=== PATIENT | female | born 1990 | race Caucasian/White ===

== ENCOUNTER 2019-01-19 10:33 | Emergency (ER) | payer OTHER ==
--- NOTE | 2019-01-19 10:37 | EDM.PDOC ---
ED HPI GENERAL MEDICAL PROBLEM - General Chief Complaint: Abdominal Pain Stated Complaint: ABDOMINAL PAIN Time Seen by Provider: 01/19/19 10:36 Source of Information: Reports: Patient, Family, RN, RN Notes Reviewed History Limitations: Reports: No Limitations - History of Present Illness INITIAL COMMENTS - FREE TEXT/NARRATIVE: Patient presents the emergency room at [facility] complaining of left flank pain that radiates to the umbilicus. The patient states that her pain started this morning and has progressively gotten worse. The patient states that she's had this in the past and was diagnosed with a kidney infection. The patient states she feels slightly nauseated but has not vomited. No UTI symptoms. The patient denies any diarrhea. Patient denies any recent infections. The patient states she is having normal bowel movements. The patient states that the pain is sharp and stabbing. The patient has not taken any medications for her symptoms. Otherwise no other concerns. Left Flank Pain Score (Numeric/FACES): 10 - Related Data Allergies Allergy/AdvReac Type Severity Reaction Status Date / Time morphine Allergy Hives Verified 01/19/19 10:56 venom-honey bee Allergy Swelling Verified 01/19/19 10:56 [bee venom (honey bee)] Home Meds: Home Meds . 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 Denies: Diarrhea, Vomiting Skin: Reports: No Symptoms Neurological: Reports: No Symptoms ED EXAM, GI/ABD - Physical Exam Exam: See Below Exam Limited By: No Limitations General Appearance: Alert, No Apparent Distress Respiratory/Chest: No Respiratory Distress, Lungs Clear, Normal Breath Sounds Cardiovascular: Normal Peripheral Pulses, Regular Rate, Rhythm GI/Abdominal Exam: Tender (Umbilical area), Abnormal Bowel Sounds (Hypoactive). No: Rigid, Rebound Back Exam: CVA Tenderness (L). No: Paraspinal Tenderness Neurological: Alert, Oriented Skin Exam: Warm, Dry, Intact, Normal Color Course - Vital Signs Last Recorded V/S: Last Vital Signs Temp 36.6 C 01/19/19 10:35 Pulse 79 01/19/19 10:35 Resp 16 01/19/19 10:35 BP 94/60 01/19/19 10:35 Pulse Ox 95 01/19/19 10:35 - Orders/Labs/Meds Orders: Active Orders 24 hr Category Date Time Status CULTURE URINE [RM] Stat Lab 01/19/19 11:11 Received Sodium Chloride 0.9% [Saline Flush] Med 01/19/19 10:39 Active 10 ml FLUSH ASDIRECTED PRN Peripheral IV Insertion Adult [OM.PC] Routine Oth 01/19/19 10:39 Ordered Medication Orders Sodium Chloride (Saline Flush) 10 ml FLUSH ASDIRECTED PRN PRN Reason: Keep Vein Open Labs: Laboratory Tests 01/19/19 01/19/19 01/19/19 Range/Units 10:48 10:48 11:11 WBC 13.1 H (4.0-10.0) x10^3/uL RBC 4.67 (4.00-5.50) x10^6/uL Hgb 13.8 D (12.0-16.0) g/dL Hct 42.5 (33.0-47.0) % MCV 91.0 (78.0-93.0) fL MCH 29.6 (26.0-32.0) pg MCHC 32.5 (32.0-36.0) g/dL RDW Coeff of Shelly 13.5 (10.0-15.0) % Plt Count 201 (130-400) x10^3/uL Neut % (Auto) 75.5 (50.0-80.0) % Lymph % (Auto) 17.4 L (25.0-50.0) % [place] % (Auto) 5.6 (2.0-11.0) % Eos % (Auto) 1.3 (0.0-4.0) % Baso % (Auto) 0.2 (0.2-1.2) % Sodium 140 (136-145) mmol/L Potassium 3.8 (3.5-5.1) mmol/L Chloride 103 (98-107) mmol/L Carbon Dioxide 28 (21-32) mmol/L Anion Gap 12.8 (10-20) mmol/L BUN 13 (7-18) mg/dL Creatinine 0.7 (0.55-1.02) mg/dL Est Cr Clr Drug Dosing TNP Estimated GFR (MDRD) > 60 Glucose 97 (74-106) mg/dL Calcium 9.4 (8.5-10.1) mg/dL Corrected Calcium 9.40 (8.5-10.1) mg/dL Total Bilirubin 0.4 (0.2-1.0) mg/dL AST 14 L (15-37) U/L ALT 16 (14-59) U/L Alkaline Phosphatase 59 (46-116) U/L Total Protein 7.3 (6.4-8.2) g/dL Albumin 4.0 (3.4-5.0) g/dL Globulin 3.3 Albumin/Globulin Ratio 1.21 Amylase 36 (25-115) U/L Lipase 156 (73-393) U/L Urine Color Yellow (YELLOW) Urine Appearance Cloudy H (CLEAR) Urine pH 7.0 (5.0-8.0) Ur Specific [place] 1.020 Urine Protein 30 H (NEGATIVE) mg/dL Urine Glucose (UA) Negative (NEGATIVE) mg/dL Urine Ketones Negative (NEGATIVE) mg/dL Urine Occult Blood Large H (NEGATIVE) Urine Nitrite Negative (NEGATIVE) Urine Bilirubin Negative (NEGATIVE) Urine Urobilinogen 0.2 (0.2) EU/dL Ur Leukocyte Esterase Small H (NEGATIVE) Urine RBC >100 H (NOT SEEN) /HPF Urine WBC 0-5 (NOT SEEN) /HPF Ur Squamous Epith Cells Few H (NEGATIVE) /HPF Urine Bacteria Moderate H (NEGATIVE) /HPF Urine Mucus Not seen (NEGATIVE) /LPF Urine HCG, Qual (NEGATIVE) 01/19/19 Range/Units 11:11 WBC (4.0-10.0) x10^3/uL RBC (4.00-5.50) x10^6/uL Hgb (12.0-16.0) g/dL Hct (33.0-47.0) % MCV (78.0-93.0) fL MCH (26.0-32.0) pg MCHC (32.0-36.0) g/dL RDW Coeff of Shelly (10.0-15.0) % Plt Count (130-400) x10^3/uL Neut % (Auto) (50.0-80.0) % Lymph % (Auto) (25.0-50.0) % [place] % (Auto) (2.0-11.0) % Eos % (Auto) (0.0-4.0) % Baso % (Auto) (0.2-1.2) % Sodium (136-145) mmol/L Potassium (3.5-5.1) mmol/L Chloride (98-107) mmol/L Carbon Dioxide (21-32) mmol/L Anion Gap (10-20) mmol/L BUN (7-18) mg/dL Creatinine (0.55-1.02) mg/dL Est Cr Clr Drug Dosing Estimated GFR (MDRD) Glucose (74-106) mg/dL Calcium (8.5-10.1) mg/dL Corrected Calcium (8.5-10.1) mg/dL Total Bilirubin (0.2-1.0) mg/dL AST (15-37) U/L ALT (14-59) U/L Alkaline Phosphatase (46-116) U/L Total Protein (6.4-8.2) g/dL Albumin (3.4-5.0) g/dL Globulin Albumin/Globulin Ratio Amylase (25-115) U/L Lipase (73-393) U/L Urine Color (YELLOW) Urine Appearance (CLEAR) Urine pH (5.0-8.0) Ur Specific [place] Urine Protein (NEGATIVE) mg/dL Urine Glucose (UA) (NEGATIVE) mg/dL Urine Ketones (NEGATIVE) mg/dL Urine Occult Blood (NEGATIVE) Urine Nitrite (NEGATIVE) Urine Bilirubin (NEGATIVE) Urine Urobilinogen (0.2) EU/dL Ur Leukocyte Esterase (NEGATIVE) Urine RBC (NOT SEEN) /HPF Urine WBC (NOT SEEN) /HPF Ur Squamous Epith Cells (NEGATIVE) /HPF Urine Bacteria (NEGATIVE) /HPF Urine Mucus (NEGATIVE) /LPF Urine HCG, Qual Negative (NEGATIVE) Meds: Medications Generic Name Dose Route Start Last Admin Trade Name Freq PRN Reason Stop Dose Admin Sodium Chloride 10 ml 01/19/19 10:39 Saline Flush FLUSH ASDIRECTED PRN Keep Vein Open Discontinued Medications Generic Name Dose Route Start Last Admin Trade Name Gladys PRN Reason Stop Dose Admin Sodium Chloride 1,000 mls @ 999 mls/hr 01/19/19 10:39 01/19/19 11:00 Normal Saline IV 01/19/19 11:39 999 mls/hr ONETIME ONE Administration Ketorolac Tromethamine 30 mg 01/19/19 10:39 01/19/19 11:10 Toradol IVPUSH 01/19/19 10:40 30 mg ONETIME ONE Administration Ondansetron HCl 4 mg 01/19/19 10:39 01/19/19 11:08 Zofran IVPUSH 01/19/19 10:40 4 mg ONETIME ONE Administration - Radiology Interpretation Free Text/Narrative:: CT Abd/Pelvis: No renal/ureteral calculus or hydronephrosis See scanned report in EMR for details CT Results Date: 01/19/19 CT Results Time: 12:48 Departure - Departure Time of Disposition: 13:01 Disposition: Home, Self-Care 01 Condition: Good Clinical Impression: Left flank pain Hematuria Qualifiers: Hematuria type: unspecified type Qualified Code(s): R31.9 - Hematuria, unspecified - Discharge Information *PRESCRIPTION DRUG MONITORING PROGRAM REVIEWED*: Not Applicable *COPY OF PRESCRIPTION DRUG MONITORING REPORT IN PATIENT [facility]: Not Applicable Instructions: Hematuria, Adult, Flank Pain, Adult Referrals: Crystal Tavarez DO [Primary Care Provider] - 01/20/19 11:40 am (FOLLOW UP TOMORROW JANUARY 20, 2019 AT 11:40AM WITH DR. TAVAREZ) Forms: ED Department Discharge Additional Instructions: 1. Stay well hydrated and rest 2. See Dr. Tavarez in clinic tomorrow at 11:40 3. Call with any questions or concerns - Problem List Review Problem List Initiated/Reviewed/Updated: Yes - My Orders Last 24 Hours: My Active Orders 01/19/19 10:39 Sodium Chloride 0.9% [Saline Flush] 10 ml FLUSH ASDIRECTED PRN Peripheral IV Insertion Adult [OM.PC] Routine 01/19/19 11:11 CULTURE URINE [RM] Stat - Assessment/Plan Last 24 Hours: My Active Orders 01/19/19 10:39 Sodium Chloride 0.9% [Saline Flush] 10 ml FLUSH ASDIRECTED PRN Peripheral IV Insertion Adult [OM.PC] Routine 01/19/19 11:11 CULTURE URINE [RM] Stat Assessment:: Left flank pain Hematuria Plan: CT and labs discussed with patient. No acute emergency or etiology found for her presenting symptoms. Will discharge home and have to patient see her PCP tomorrow in clinic for additional evaluation and possible treatment.
[2019-01-19] MEDS ORDERED: Sodium Chloride 0.9% 10 ML Syringe FLUSH PRN (10:39)
[2019-01-19] MEDS: Sodium Chloride 0.9% 1,000 ML IV ONE (11:00)
[2019-01-19] MEDS: Ondansetron 4 MG/2 ML SDV IVPUSH ONE (11:08)
[2019-01-19] MEDS: Ketorolac 30 MG/ML SDV IVPUSH ONE (11:10)
[2019-01-19 11:13] LABS: CHLORIDE,CL 103 mmol/L (98-107); SODIUM,NA 140 mmol/L (136-145)
[2019-01-19 11:31] LABS: ANION GAP 12.8 mmol/L (10-20)
--- NOTE | 2019-01-19 12:51 | CT ---
[id number] CT/CT Renal Stone Protocol EXAM: RENAL STONE PROTOCOL ABDOMEN CT INDICATION: Abdominal pain, hematuria and stone protocol. COMPARISON: None. DISCUSSION: Mildly elevated colonic stool volume. Appendectomy. Small fat-containing umbilical hernia. Small free fluid in the pelvis is likely physiologic. Left greater than right small ovarian follicles. Retroflexed uterus. The kidneys and collecting systems are normal in appearance without hydronephrosis or urinary calculus identified to explain hematuria. Unenhanced images of the liver, gallbladder, spleen, pancreas, adrenal glands, and small bowel are normal in appearance. No adenopathy or free air. The osseous structures are unremarkable. IMPRESSION: 1. No renal/ureteral calculus or hydronephrosis. Santos Baig MD 01/19/19 [id number] Thank you for allowing us to participate in the care of your patient.
[2019-01-19 14:01] VITALS: BP 101/72
== END 2019-01-19 13:17 | disposition home or self-care (01) ==
LOC: VM.ED 10:33
DX: R10.33 Periumbilical pain (principal); R10.9 Unspecified abdominal pain; R31.9 Hematuria, unspecified; Z88.5 Allergy status to narcotic agent; Z91.030 Bee allergy status
CPT/HCPCS: 36415; 74176; 80053; 81001; 81025; 82150; 83690; 85025; 87086; 96361; 96374; 96375; 99284-25; J1885; J2405; J7030

== ENCOUNTER 2020-07-16 19:30 | Emergency (ER) | payer OTHER ==
[2020-07-16 21:08] LABS: CHLORIDE,CL 103 mmol/L (98-107); SODIUM,NA 137 mmol/L (136-145)
[2020-07-16 21:09] LABS: ANION GAP 12.2 mmol/L (10-20)
[2020-07-16] MEDS ORDERED: Sodium Chloride 0.9% 10 ML Syringe FLUSH PRN (21:17)
[2020-07-16] MEDS ORDERED: HYDROmorphone 0.5 MG/0.5 ML Syringe IV ONE (21:28)
[2020-07-16] MEDS ORDERED: Iopamidol 612 MG/ML 100 ML Bottle IVPUSH ONE (21:55)
[2020-07-16] MEDS ORDERED: Magnesium Hydroxide 400 MG/5 ML Susp 30 ML Cup PO ONE (22:13)
[2020-07-16] MEDS ORDERED: HYDROmorphone 0.5 MG/0.5 ML Syringe IM ONE (23:20)
--- NOTE | 2020-07-16 23:26 | EDM.PDOC ---
ED HPI GENERAL MEDICAL PROBLEM - General Stated Complaint: abdominal pain, back pain Time Seen by Provider: 07/16/20 21:35 Source of Information: Reports: Patient History Limitations: Reports: No Limitations - History of Present Illness INITIAL COMMENTS - FREE TEXT/NARRATIVE: Pt. presents to ER with complaints of excruciating abdominal pain that started this evening. Pt. state that it is primarily in the lower abdomen, L more than R. Denies any bloody stools. No diarrhea. No nausea or vomiting. Pt. states that she had a BM today and states that it was "normal". Denies problems with constipation. Pt. denies any fever or chills. No chest pain or shortness of breath. No cough or chest congestion. Pt. denies any history of intestinal/GI problems in the past. She has had her appendix removed. Pt. states that the discomfort radiates into her low back. She states that the symptoms are very similar to when she had a pyelonephritis in the past. Onset: Today Location: Reports: Abdomen Quality: Reports: Ache, Dull Severity: Severe Associated Symptoms: Denies: Chest Pain, Cough, Diaphoresis, Fever/Chills, Malaise, Nausea/Vomiting, Rash, Seizure, Shortness of Breath, Syncope, Weakness - Related Data Allergies Allergy/AdvReac Type Severity Reaction Status Date / Time morphine Allergy Hives Verified 01/19/19 10:56 venom-honey bee Allergy Swelling Verified 01/19/19 10:56 [bee venom (honey bee)] Home Meds: Home Meds . 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 Denies: Black Stool, Bloody Stool, Constipation, Diarrhea, Distension, Hematochezia, Vomiting : Reports: No Symptoms Musculoskeletal: Reports: No Symptoms Skin: Reports: No Symptoms Neurological: Reports: No Symptoms Psychiatric: Reports: No Symptoms Hematologic/Lymphatic: Reports: No Symptoms Immunologic: Reports: No Symptoms ED EXAM, GENERAL - Physical Exam Exam: See Below Exam Limited By: No Limitations General Appearance: Alert, WD/WN, No Apparent Distress Head: Atraumatic, Normocephalic Neck: Normal Inspection, Supple, Non-Tender, Full Range of Motion Respiratory/Chest: No Respiratory Distress, Lungs Clear, Normal Breath Sounds, No Accessory Muscle Use, Chest Non-Tender Cardiovascular: Normal Peripheral Pulses, Regular Rate, Rhythm, No Edema, No JVD, No Murmur, No Rub Peripheral Pulses: 4+: Radial (L) GI/Abdominal: Guarding, Tender, Other (Severe tenderness on palpation. Pt. does not tolerate much palpation at all.) (Female) Exam: Deferred Rectal (Female) Exam: Deferred Back Exam: Normal Inspection, Full Range of Motion, Other (complains of severe pain to mid/low back.) Extremities: Normal Inspection, Normal Capillary Refill Neurological: Alert, Oriented, CN II-XII Intact, Normal Cognition, Normal Gait, Normal Reflexes, No Motor/Sensory Deficits Psychiatric: Normal Affect, Normal Mood Skin Exam: Warm, Dry, Intact, Normal Color, No Rash Lymphatic: No Adenopathy Course - Orders/Labs/Meds Orders: Active Orders 24 hr Category Date Time Status Abdomen Pelvis w Cont [CT] Stat Exams 07/16/20 21:18 Ordered HYDROmorphone [Dilaudid] Med 07/16/20 23:20 Once 0.5 mg IM ONETIME ONE Sodium Chloride 0.9% [Saline Flush] Med 07/16/20 21:17 Active 10 ml FLUSH ASDIRECTED PRN Peripheral IV Insertion Adult [OM.PC] Routine Oth 07/16/20 21:18 Ordered Medication Orders Hydromorphone HCl (Dilaudid) 0.5 mg IM ONETIME ONE Stop: 07/16/20 23:21 Sodium Chloride (Saline Flush) 10 ml FLUSH ASDIRECTED PRN PRN Reason: Keep Vein Open Labs: Laboratory Tests 07/16/20 07/16/20 07/16/20 Range/Units 20:07 20:07 20:38 WBC 8.8 (4.0-10.0) x10^3/uL RBC 4.48 (4.00-5.50) x10^6/uL Hgb 13.7 (12.0-16.0) g/dL Hct 40.2 (33.0-47.0) % MCV 89.7 (78.0-93.0) fL MCH 30.6 (26.0-32.0) pg MCHC 34.1 (32.0-36.0) g/dL RDW Coeff of Shelly 12.4 (10.0-15.0) % Plt Count 220 (130-400) x10^3/uL Neut % (Auto) 58.7 (50.0-80.0) % Lymph % (Auto) 32.1 (25.0-50.0) % [place] % (Auto) 5.2 (2.0-11.0) % Eos % (Auto) 3.5 (0.0-4.0) % Baso % (Auto) 0.5 (0.2-1.2) % PT (9.5-12.3) SEC INR (2.0-3.5) Sodium (136-145) mmol/L Potassium (3.5-5.1) mmol/L Chloride (98-107) mmol/L Carbon Dioxide (21-32) mmol/L Anion Gap (10-20) mmol/L BUN (7-18) mg/dL Creatinine (0.55-1.02) mg/dL Est Cr Clr Drug Dosing Estimated GFR (MDRD) Glucose (74-106) mg/dL Calcium (8.5-10.1) mg/dL Corrected Calcium (8.5-10.1) mg/dL Total Bilirubin (0.2-1.0) mg/dL AST (15-37) U/L ALT (14-59) U/L Alkaline Phosphatase (46-116) U/L C-Reactive Protein (<=0.9) mg/dL Total Protein (6.4-8.2) g/dL Albumin (3.4-5.0) g/dL Globulin Albumin/Globulin Ratio Amylase (25-115) U/L Lipase (73-393) U/L Urine Color Dark yellow H (YELLOW) Urine Appearance Cloudy H (CLEAR) Urine pH 7.5 (5.0-8.0) Ur Specific [place] 1.025 Urine Protein Negative (NEGATIVE) mg/dL Urine Glucose (UA) Negative (NEGATIVE) mg/dL Urine Ketones Negative (NEGATIVE) mg/dL Urine Occult Blood Negative (NEGATIVE) Urine Nitrite Negative (NEGATIVE) Urine Bilirubin Negative (NEGATIVE) Urine Urobilinogen 0.2 (0.2) EU/dL Ur Leukocyte Esterase Negative (NEGATIVE) Urine HCG, Qual Negative (NEGATIVE) 07/16/20 07/16/20 Range/Units 20:38 20:38 WBC (4.0-10.0) x10^3/uL RBC (4.00-5.50) x10^6/uL Hgb (12.0-16.0) g/dL Hct (33.0-47.0) % MCV (78.0-93.0) fL MCH (26.0-32.0) pg MCHC (32.0-36.0) g/dL RDW Coeff of Shelly (10.0-15.0) % Plt Count (130-400) x10^3/uL Neut % (Auto) (50.0-80.0) % Lymph % (Auto) (25.0-50.0) % [place] % (Auto) (2.0-11.0) % Eos % (Auto) (0.0-4.0) % Baso % (Auto) (0.2-1.2) % PT 10.2 (9.5-12.3) SEC INR 0.9 L (2.0-3.5) Sodium 137 (136-145) mmol/L Potassium 4.2 (3.5-5.1) mmol/L Chloride 103 (98-107) mmol/L Carbon Dioxide 26 (21-32) mmol/L Anion Gap 12.2 (10-20) mmol/L BUN 13 (7-18) mg/dL Creatinine 0.7 (0.55-1.02) mg/dL Est Cr Clr Drug Dosing TNP Estimated GFR (MDRD) > 60 Glucose 87 (74-106) mg/dL Calcium 8.5 (8.5-10.1) mg/dL Corrected Calcium 8.74 (8.5-10.1) mg/dL Total Bilirubin 0.3 (0.2-1.0) mg/dL AST 19 (15-37) U/L ALT 20 (14-59) U/L Alkaline Phosphatase 55 (46-116) U/L C-Reactive Protein < 0.2 (<=0.9) mg/dL Total Protein 6.8 (6.4-8.2) g/dL Albumin 3.7 (3.4-5.0) g/dL Globulin 3.1 Albumin/Globulin Ratio 1.19 Amylase 41 (25-115) U/L Lipase 171 (73-393) U/L Urine Color (YELLOW) Urine Appearance (CLEAR) Urine pH (5.0-8.0) Ur Specific [place] Urine Protein (NEGATIVE) mg/dL Urine Glucose (UA) (NEGATIVE) mg/dL Urine Ketones (NEGATIVE) mg/dL Urine Occult Blood (NEGATIVE) Urine Nitrite (NEGATIVE) Urine Bilirubin (NEGATIVE) Urine Urobilinogen (0.2) EU/dL Ur Leukocyte Esterase (NEGATIVE) Urine HCG, Qual (NEGATIVE) Meds: Medications Generic Name Dose Route Start Last Admin Trade Name Freq PRN Reason Stop Dose Admin Hydromorphone HCl 0.5 mg 07/16/20 23:20 Dilaudid IM 07/16/20 23:21 ONETIME ONE Sodium Chloride 10 ml 07/16/20 21:17 Saline Flush FLUSH ASDIRECTED PRN Keep Vein Open Discontinued Medications Generic Name Dose Route Start Last Admin Trade Name Freq PRN Reason Stop Dose Admin Hydromorphone HCl 0.5 mg 07/16/20 21:28 Dilaudid IV 07/16/20 21:29 ONETIME ONE Iopamidol 100 ml 07/16/20 21:55 07/16/20 21:58 Isovue-300 (61%) IVPUSH 07/16/20 21:56 100 ml ONETIME ONE Administration Magnesium Hydroxide 30 ml 07/16/20 22:13 Milk Of Magnesia PO 07/16/20 22:14 ONETIME ONE - Radiology Interpretation Free Text/Narrative:: CT abdomen and pelvis with IV contrast obtained, negative for acute pathology. Moderate to large stool noted in colon. Departure - Departure Time of Disposition: 22:20 Disposition: Home, Self-Care 01 Clinical Impression: Constipation - Discharge Information Instructions: Constipation, Adult Additional Instructions: Increase intake of fluids. You are dehydrated which can contribute to constipation. Start miralax 17 gm once daily. Start milk of mag tomorrow to help have a bowel movement. - Problem List Review Problem List Initiated/Reviewed/Updated: Yes - My Orders Last 24 Hours: My Active Orders 07/16/20 21:17 Sodium Chloride 0.9% [Saline Flush] 10 ml FLUSH ASDIRECTED PRN 07/16/20 21:18 Abdomen Pelvis w Cont [CT] Stat Peripheral IV Insertion Adult [OM.PC] Routine 07/16/20 23:20 HYDROmorphone [Dilaudid] 0.5 mg IM ONETIME ONE - Assessment/Plan Last 24 Hours: My Active Orders 07/16/20 21:17 Sodium Chloride 0.9% [Saline Flush] 10 ml FLUSH ASDIRECTED PRN 07/16/20 21:18 Abdomen Pelvis w Cont [CT] Stat Peripheral IV Insertion Adult [OM.PC] Routine 07/16/20 23:20 HYDROmorphone [Dilaudid] 0.5 mg IM ONETIME ONE Plan: Increase intake of fluids. You are dehydrated which can contribute to constipation. Start miralax 17 gm once daily. Start milk of mag tomorrow to help have a bowel movement.
[2020-07-17 01:59] VITALS: BP 119/52; PULSE 72
--- NOTE | 2020-07-17 07:58 | CT ---
[id number] CT/CT Abdomen Pelvis W IV EXAM: CT Abdomen Pelvis W IV CLINICAL DATA: ABDOMINAL PAIN COMPARISON: CORRELATION IS MADE WITH THE EXAM OF JANUARY 19, 2019 FINDINGS: The liver and spleen are unremarkable. The kidneys and adrenals show no abnormality. The aorta and pancreas are within normal limits. There is no bowel distention. There is no bowel wall thickening either. There is no free fluid or free air. There is no adenopathy. The pelvis shows no mass, free fluid, abscess, inflammatory change, or adenopathy. IMPRESSION: NO ACUTE PROCESS. Teo Gann MD 07/17/20 [id number] Thank you for allowing us to participate in the care of your patient.
== END 2020-07-16 22:20 | disposition home or self-care (01) ==
LOC: VM.ED 19:30
DX: K59.00 Constipation, unspecified (principal); Z88.5 Allergy status to narcotic agent; Z91.030 Bee allergy status
CPT/HCPCS: 36415; 74177; 80053; 81003; 81025; 82150; 83690; 85025; 85610; 86140; 96372; 99284; A9270; J1170; Q9967

== ENCOUNTER 2021-05-15 18:33 | Emergency (ER) | payer OTHER ==
[2021-05-15] MEDS ORDERED: Sodium Chloride 0.9% 10 ML Syringe FLUSH PRN (18:55)
--- NOTE | 2021-05-15 18:56 | EDM.PDOC ---
ED HPI GENERAL MEDICAL PROBLEM - General Stated Complaint: STOMACH PAIN Time Seen by Provider: 05/15/21 18:50 Source of Information: Reports: Patient History Limitations: Reports: No Limitations - History of Present Illness INITIAL COMMENTS - FREE TEXT/NARRATIVE: Patient comes emergency department today with complaints of some generalized abdominal pain nausea vomiting headache and generalized malaise. This patient felt fine yesterday and today when she woke up she had the above complaints. She has had a tubal ligation as well as a uterine ablation in the past. Otherwise denies any other past medical history other than one time when she had a what appears to sound like a pyelonephritis with some acute kidney injury overlay on top of it in the past. She does have recurrent urinary tract infe ctions that she is asymptomatic with. She has had no dysuria hematuria or urinary frequency. She does complain of bilateral posterior flank pain. She denies any fever but does complain of subjective chills. No vaginal discharge or drainage. She has had an appendectomy in the past. - Related Data Allergies Allergy/AdvReac Type Severity Reaction Status Date / Time morphine Allergy Hives Verified 05/15/21 19:23 venom-honey bee Allergy Swelling Verified 05/15/21 19:23 [bee venom (honey bee)] Home Meds: Home Meds Ondansetron [Ondansetron Odt] 4 mg PO TID PRN #10 tab.rapdis 05/15/21 [Rx] Past Medical History Genitourinary History: Reports: Other (See Below) Other Genitourinary History: One incident of acute renal failure, due to a severe UTI [employer]GER [employer] History: Reports: , Other (See Below) Other MA[employer] History: Currently 20 weeks - Past Surgical History HEENT Surgical History: Reports: Myringotomy w Tube(s), Oral Surgery GI Surgical History: Reports: Appendectomy ED ROS GENERAL - Review of Systems Review Of Systems: Comprehensive ROS is negative, except as noted in HPI. ED EXAM, GI/ABD - Physical Exam Exam: See Below Exam Limited By: No Limitations General Appearance: Alert, WD/WN, No Apparent Distress Eyes: Bilateral: EOMI Ears: Normal External Exam Nose: Normal Inspection Throat/Mouth: No: Normal Inspection (oral mucosa dry) Head: Atraumatic, Normocephalic Neck: Normal Inspection, Supple, Non-Tender Respiratory/Chest: No Respiratory Distress, Lungs Clear, Normal Breath Sounds, No Accessory Muscle Use, Chest Non-Tender Cardiovascular: Normal Peripheral Pulses, Regular Rate, Rhythm GI/Abdominal Exam: Normal Bowel Sounds, Soft, Tender (generalized tenderness without guarding rebound. Negative [place] sign. ) (Female) Exam: Deferred Rectal (Female) Exam: Deferred Back Exam: Normal Inspection, Full Range of Motion Extremities: Normal Inspection, Normal Range of Motion, Normal Capillary Refill Neurological: Alert, Oriented, Normal Cognition, No Motor/Sensory Deficits Psychiatric: Normal Affect, Normal Mood Skin Exam: Warm, Dry, Intact, Normal Color Lymphatic: No Adenopathy Course - Vital Signs Last Recorded V/S: Last Vital Signs Temp 98.1 F 05/15/21 18:55 Pulse 82 05/15/21 18:55 Resp 16 05/15/21 18:55 BP 90/43 L 05/15/21 18:55 Pulse Ox 98 05/15/21 18:55 - Orders/Labs/Meds Orders: Active Orders 24 hr Category Date Time Status Peripheral IV Insertion Adult [OM.PC] Stat Oth 05/15/21 18:55 Ordered Labs: Laboratory Tests 05/15/21 05/15/21 05/15/21 Range/Units 07:05 07:05 19:35 WBC 8.5 (4.0-10.0) x10^3/uL RBC 4.67 (4.00-5.50) x10^6/uL Hgb 14.5 (12.0-16.0) g/dL Hct 41.3 (33.0-47.0) % MCV 88.4 (78.0-93.0) fL MCH 31.0 (26.0-32.0) pg MCHC 35.1 (32.0-36.0) g/dL RDW Coeff of Shelly 12.3 (10.0-15.0) % Plt Count 151 (130-400) x10^3/uL Neut % (Auto) 84.4 H (50.0-80.0) % Lymph % (Auto) 9.4 L (25.0-50.0) % Hughes % (Auto) 5.2 (2.0-11.0) % Eos % (Auto) 0.9 (0.0-4.0) % Baso % (Auto) 0.1 L (0.2-1.2) % Sodium 136 (136-145) mmol/L Potassium 3.8 (3.5-5.1) mmol/L Chloride 104 (98-107) mmol/L Carbon Dioxide 26 (21-32) mmol/L Anion Gap 9.8 (5-15) mmol/L BUN 16 (7-18) mg/dL Creatinine 0.8 (0.55-1.02) mg/dL Est Cr Clr Drug Dosing TNP Estimated GFR (MDRD) > 60 Glucose 82 (70-99) mg/dL Calcium 8.5 (8.5-10.1) mg/dL Corrected Calcium 8.7 (8.5-10.1) mg/dL Total Bilirubin 0.8 (0.2-1.0) mg/dL AST 17 (15-37) U/L ALT 17 (14-59) U/L Alkaline Phosphatase 45 L (46-116) U/L Total Protein 7.3 (6.4-8.2) g/dL Albumin 3.7 (3.4-5.0) g/dL Globulin 3.6 Albumin/Globulin Ratio 1.03 Lipase 160 (73-393) U/L Urine Color (YELLOW) Urine Appearance (CLEAR) Urine pH (5.0-8.0) Ur Specific [place] Urine Protein (NEGATIVE) mg/dL Urine Glucose (UA) (NEGATIVE) mg/dL Urine Ketones (NEGATIVE) mg/dL Urine Occult Blood (NEGATIVE) Urine Nitrite (NEGATIVE) Urine Bilirubin (NEGATIVE) Urine Urobilinogen (0.2) EU/dL Ur Leukocyte Esterase (NEGATIVE) Urine RBC (NOT SEEN) /HPF Urine WBC (NOT SEEN) /HPF Ur Squamous Epith Cells (NOT SEEN) /HPF Urine Bacteria (NOT SEEN) /HPF Urine Mucus (NOT SEEN) /LPF Urine HCG, Qual Negative (NEGATIVE) 05/15/21 Range/Units 19:55 WBC (4.0-10.0) x10^3/uL RBC (4.00-5.50) x10^6/uL Hgb (12.0-16.0) g/dL Hct (33.0-47.0) % MCV (78.0-93.0) fL MCH (26.0-32.0) pg MCHC (32.0-36.0) g/dL RDW Coeff of Shelly (10.0-15.0) % Plt Count (130-400) x10^3/uL Neut % (Auto) (50.0-80.0) % Lymph % (Auto) (25.0-50.0) % Hughes % (Auto) (2.0-11.0) % Eos % (Auto) (0.0-4.0) % Baso % (Auto) (0.2-1.2) % Sodium (136-145) mmol/L Potassium (3.5-5.1) mmol/L Chloride (98-107) mmol/L Carbon Dioxide (21-32) mmol/L Anion Gap (5-15) mmol/L BUN (7-18) mg/dL Creatinine (0.55-1.02) mg/dL Est Cr Clr Drug Dosing Estimated GFR (MDRD) Glucose (70-99) mg/dL Calcium (8.5-10.1) mg/dL Corrected Calcium (8.5-10.1) mg/dL Total Bilirubin (0.2-1.0) mg/dL AST (15-37) U/L ALT (14-59) U/L Alkaline Phosphatase (46-116) U/L Total Protein (6.4-8.2) g/dL Albumin (3.4-5.0) g/dL Globulin Albumin/Globulin Ratio Lipase (73-393) U/L Urine Color Yellow (YELLOW) Urine Appearance Clear (CLEAR) Urine pH 6.5 (5.0-8.0) Ur Specific [place] 1.025 Urine Protein Negative (NEGATIVE) mg/dL Urine Glucose (UA) Negative (NEGATIVE) mg/dL Urine Ketones 15 H (NEGATIVE) mg/dL Urine Occult Blood Trace-lysed H (NEGATIVE) Urine Nitrite Negative (NEGATIVE) Urine Bilirubin Small H (NEGATIVE) Urine Urobilinogen 0.2 (0.2) EU/dL Ur Leukocyte Esterase Negative (NEGATIVE) Urine RBC 0-5 (NOT SEEN) /HPF Urine WBC 0-5 (NOT SEEN) /HPF Ur Squamous Epith Cells Few H (NOT SEEN) /HPF Urine Bacteria Rare (NOT SEEN) /HPF Urine Mucus Few H (NOT SEEN) /LPF Urine HCG, Qual (NEGATIVE) Meds: Medications Discontinued Medications Generic Name Dose Route Start Last Admin Trade Name Freq PRN Reason Stop Dose Admin Lactated Ringer's 1,000 mls @ 999 mls/hr 05/15/21 19:06 05/15/21 19:16 Ringers, Lactated IV 05/15/21 20:06 999 mls/hr ONETIME ONE Administration Lactated Ringer's 1,000 mls @ 999 mls/hr 05/15/21 20:08 05/15/21 20:10 Ringers, Lactated IV 05/15/21 21:08 999 mls/hr ONETIME ONE Administration Ondansetron HCl 4 mg 05/15/21 19:06 05/15/21 19:16 Ondansetron 4 Mg/2 Ml Sdv IV 05/15/21 19:07 4 mg ONETIME ONE Administration Ondansetron HCl 1 packet 05/15/21 20:10 05/15/21 20:19 Take Home: Ondansetron 4 Mg Tab.Dis, 2 Tab Pack PO 05/15/21 20:11 1 packet ONETIME ONE Administration Ondansetron HCl Confirm 05/15/21 20:33 05/16/21 00:12 Ondansetron 4 Mg Tab.Dis Administered 05/15/21 20:34 Not Given Dose 8 mg .ROUTE .STK-MED ONE Sodium Chloride 10 ml 05/15/21 18:55 Sodium Chloride 0.9% 10 Ml Syringe FLUSH ASDIRECTED PRN Keep Vein Open - Re-Assessments/Exams Free Text/Narrative Re-Assessment/Exam: 05/15/21 19:18 IV established labs drawn. LR 1 liter wide open Zofran 4mg IVP Laboratory evaluation is rather unremarkable. There is no sign of urinary tract infection that the patient was concerned of. She appears to be a little dehydrated as well as in ketosis which is not surprising as she has not been eating or drinking much today. She does feel quite a bit better after the above therapy with the IV fluid and Zofran. Reexamination of the abdomen shows a much less generalized tenderness in her abdomen no focalized tenderness. She most likely has some little GI bug that is making her not feel well or she is little on the dehydrated side. She was given a second liter of fluid feels much better and we will discharge her home anything new or worse she is to recheck. Discharge directions as below are explained to the patient she was comfortable this plan and her questions were answered. Departure - Departure Time of Disposition: 20:11 Disposition: Home, Self-Care 01 Clinical Impression: Dehydration Abdominal pain Qualifiers: Abdominal location: generalized Qualified Code(s): R10.84 - Generalized abdo wicho pain - Discharge Information Prescriptions: Ondansetron [Ondansetron Odt] 4 mg PO TID PRN #10 tab.rapdis PRN Reason: Nausea/Vomiting Instructions: Viral Gastroenteritis, Adult, [id number], Dehydration, Adult, [id number], Abdominal Pain, Adult, [id number] Referrals: Crystal Tavarez DO [Primary Care Provider] - Forms: ED Department Discharge Additional Instructions: Home rest tonight. Make sure and drink plenty of fluids especially Electrolyte containing materials such as gatorade and or powerade. Easy diet, nothing with dairy for 48hrs post symptom resolution. Nothing fatty spicy or rich. Slowly advance diet as tolerated. Tylenol as needed for pain. Zofran 1 tablet every 6 hrs as needed for nausea or vomiting. Take home pack from the ED and RX sent to [facility] pharmacy. Return to the ED if new or worsening symptoms. Follow up with PCP in the next 4-6 days if not improving sooner if worse. - My Orders Last 24 Hours: My Active Orders 05/15/21 18:55 Peripheral IV Insertion Adult [OM.PC] Stat - Assessment/Plan Last 24 Hours: My Active Orders 05/15/21 18:55 Peripheral IV Insertion Adult [OM.PC] Stat
[2021-05-15] MEDS ORDERED: Lactated Ringers 1,000 ML IV ONE ×2 (19:06→20:08)
[2021-05-15] MEDS ORDERED: Ondansetron 4 MG/2 ML SDV IV ONE (19:06)
[2021-05-15 19:31] LABS: ANION GAP 9.8 mmol/L (5-15); CHLORIDE,CL 104 mmol/L (98-107); SODIUM,NA 136 mmol/L (136-145)
[2021-05-15 19:38] VITALS: BP 90/43; PULSE 82
[2021-05-15] MEDS ORDERED: Take Home: Ondansetron 4 MG Tab.DIS, 2 Tab Pack PO ONE (20:10)
[2021-05-15] MEDS ORDERED: Ondansetron 4 MG Tab.DIS ONE (20:33)
== END 2021-05-15 21:15 | disposition home or self-care (01) ==
LOC: VM.ED 18:33
DX: R10.84 Generalized abdominal pain (principal); E86.0 Dehydration; Z88.5 Allergy status to narcotic agent; Z91.030 Bee allergy status
CPT/HCPCS: 80053; 81001; 81025; 83690; 85025; 96374; 99284; 99284-25; A9270-GY; J2405; J7120

== ENCOUNTER 2022-01-03 21:07 | Emergency (ER) | payer OTHER ==
[2022-01-03] MEDS ORDERED: GI Cocktail Oral Solution 30 ML PO ONE (21:38)
[2022-01-03 22:07] VITALS: BP 116/70; PULSE 75
[2022-01-03 22:11] LABS: CHLORIDE,CL 104 mmol/L (98-107); SODIUM,NA 140 mmol/L (136-145)
[2022-01-03 22:13] LABS: ANION GAP 12.9 mmol/L (5-15)
== END 2022-01-03 22:44 | disposition home or self-care (01) ==
LOC: VM.ED 21:07
DX: R10.13 Epigastric pain (principal); Z88.5 Allergy status to narcotic agent; Z91.030 Bee allergy status; Z72.0 Tobacco use
CPT/HCPCS: 36415; 74019; 80053; 81001; 82150; 83690; 85025; 86140; 87086; 99283; 99284; A9270-GY

== ENCOUNTER 2022-06-19 18:13 | Emergency (ER) | payer OTHER ==
[2022-06-19 19:54] VITALS: BP 112/64; PULSE 58
[2022-06-19] MEDS ORDERED: Sodium Chloride 0.9% 10 ML Syringe FLUSH PRN (20:03)
[2022-06-19] MEDS ORDERED: Promethazine 25 MG/ML SDV IM ONE (20:04)
[2022-06-19] MEDS ORDERED: Ketorolac 30 MG/ML SDV IVPUSH ONE (20:04)
== END 2022-06-19 21:47 | disposition home or self-care (01) ==
LOC: VM.ED 18:13
DX: O99.352 Diseases of the nervous system complicating pregnancy, second trimester (principal); G43.111 Migraine with aura, intractable, with status migrainosus; Z3A.20 20 weeks gestation of pregnancy
CPT/HCPCS: 70450; 96372; 96374; 99283; 99284-25; J1885; J2550

== ENCOUNTER 2024-06-13 09:36 | Emergency (ER) | payer OTHER ==
[2024-06-13 10:27] VITALS: BP 130/62; PULSE 64
[2024-06-13] MEDS: Bacitracin Oint 1 GM U/D Packet TOP ONE (10:36)
[2024-06-13] MEDS: Diphtheria,Pertussis(Acell),Tetanus Vaccine 0.5 ML Syringe IM ONE (10:37)
[2024-06-13] MEDS: Lidocaine 1% 10 ML MDV INJECT ONE (10:40)
== END 2024-06-13 10:52 | disposition home or self-care (01) ==
LOC: VM.ED 09:36
DX: S61.411A Laceration without foreign body of right hand, initial encounter (principal); Z23 Encounter for immunization; Z90.49 Acquired absence of other specified parts of digestive tract; Z91.030 Bee allergy status; Z88.5 Allergy status to narcotic agent; X58.XXXA Exposure to other specified factors, initial encounter
CPT/HCPCS: 12001; 90471; 90715; 99282-25; 99283

== ENCOUNTER 2025-07-26 18:05 | Emergency (ER) | payer OTHER ==
[2025-07-26 18:41] VITALS: BP 123/56; PULSE 77
== END 2025-07-26 19:05 | disposition home or self-care (01) ==
LOC: VM.ED 18:05
DX: M25.551 Pain in right hip (principal); Z88.5 Allergy status to narcotic agent; Z91.030 Bee allergy status
CPT/HCPCS: 99283